=== PATIENT | female | born 1990 | race Caucasian/White ===

== ENCOUNTER → 2019-06-03 | Outpatient (CLI) | payer OTHER ==
--- NOTE | 2019-06-03 14:50 | Diagnostic Imaging Report ---
EXAM: CT Hand WITHOUT contrast INDICATION: Right thumb trauma COMPARISON: None. TECHNIQUE: The right hand was scanned utilizing a multidetector helical scanner without administration of IV contrast. Coronal and sagittal reformations were obtained. Routine protocol was performed. IV CONTRAST: None. RADIATION DOSE: Total DLP: 148.86 mGy*cm Dose modulation, iterative reconstruction, and/or weight based adjustment of the mA/kV was utilized to reduce the radiation dose to as low as reasonably achievable. COMPLICATIONS: None FINDINGS: BONES: No acute fracture or dislocation. Alignment is anatomic. No substantial degenerative change. SOFT TISSUES: There is diffuse soft tissue swelling of the right thumb. No mass or fluid collection identified. IMPRESSION: Diffuse soft tissue swelling of the right thumb without underlying acute osseous injury. Signed by: Kiko Barker MD on 06/03/2019 2:46 PM
== END ==
LOC: CT 13:55
PROVIDERS: ATTEND Family Medicine
DX: S69.91XA Unspecified injury of right wrist, hand and finger(s), initial encounter (principal)